=== PATIENT | male | born 2000 | race Caucasian/White ===

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

== ENCOUNTER 2021-01-08 12:22 | Emergency (ER) | payer BC, OTHER ==
[2021-01-08 12:39] VITALS: BP 00/00; TEMP 98.3; BMI 19.9
== END 2021-01-08 14:59 | disposition home or self-care (01) ==
LOC: JER 12:22 → JERFT 12:22
DX: S41.112A Laceration without foreign body of left upper arm, initial encounter (principal); S41.111A Laceration without foreign body of right upper arm, initial encounter
CPT/HCPCS: 99283-25

== ENCOUNTER 2021-03-31 19:46 | Emergency (ER) | payer BC, OTHER ==
[2021-03-31 20:26] VITALS: BMI 23.7
[2021-03-31] MEDS ORDERED: SODIUM CHLORIDE 2,381 ML IV ONE (20:39)
[2021-03-31] MEDS ORDERED: ACETAMINOPHEN 650 MG SUPP.RECT PR ONE (20:45)
[2021-03-31] MEDS ORDERED: ACETAMINOPHEN 1000 MG/100 ML VIAL (NON FORMULARY) IVPB ONE (20:49)
[2021-03-31] MEDS ORDERED: ACETAMINOPHEN INJECTION 100 ML IVPB ONE (20:50)
[2021-03-31] MEDS ORDERED: LORazepam 2 MG/ML SDV VIAL IVPUSH ONE (20:53)
[2021-03-31] MEDS ORDERED: HALOPERIDOL LACTATE 5 MG/ML IM ONE (20:53)
[2021-03-31] MEDS ORDERED: LORazepam 2 MG/ML SDV VIAL ONE (20:53)
[2021-03-31] MEDS ORDERED: HALOPERIDOL LACTATE 5 MG/ML ONE (20:53)
[2021-03-31] MEDS ORDERED: SODIUM CHLORIDE 0.9% 500 ML INFUS.BAG IV ONE (21:00)
[2021-03-31] MEDS ORDERED: AZITHROMYCIN IVPB 500 MG in DEXTROSE 5%-WATER - 250 ML IVPB ONE (21:27)
[2021-03-31] MEDS ORDERED: AZITHROMYCIN IVPB 500 MG/250 ML BAG IVPB ONE (22:36)
[2021-03-31 22:55] LABS: BASO % 0.1 % (0-2.0); HEMATOCRIT 35.6 % (35.4-49); HEMOGLOBIN 12.1 GM/dL (11.7-16.9); LYMPH % 9.2 % (8-40); MCH 28.1 pg (25.7-33.7); MCHC 33.9 g/dl (32.0-35.9); MEAN PLT VOLUME 7.9 fl (7.5-11.1); MONO % 11.5 % (3.8-10.2); NEUT % 79.2 % (42.8-82.8); PLATELET COUNT 148 10^3/uL (134-434); RBC 4.29 M/mm3 (4.00-5.60); RDW 13.2 % (11.9-15.9); WHITE BLOOD COUNT 8.3 K/mm3 (4.0-10.0)
[2021-03-31 23:00] LABS: ALBUMIN 2.7 g/dl (3.4-5.0); BLOOD UREA NITROGEN 11.6 mg/dL (7-18)
[2021-03-31 23:03] LABS: CREATININE 0.6 mg/dL (0.55-1.3)
[2021-03-31 23:04] LABS: BILIRUBIN,TOTAL 0.2 mg/dL (0.2-1); TOT PROT 6.9 g/dl (6.4-8.2)
[2021-03-31 23:13] VITALS: BP 110/43; PULSE 118; TEMP 101
[2021-03-31] MEDS ORDERED: IBUPROFEN 600 MG TABLET (FP) PO ONE ×2 (23:21→23:38)
[2021-03-31] MEDS ORDERED: IBUPROFEN 800 MG/8 ML IJ IVPB ONE ×2 (23:25→23:38)
== END 2021-04-01 01:06 | disposition home or self-care (01) ==
LOC: JER 19:46
PROC: 3E023NZ Introduction of Analgesics, Hypnotics, Sedatives into Muscle, Percutaneous Approach (ICD-10-PCS; principal; 2021-03-31)
PROC: 3E033NZ Introduction of Analgesics, Hypnotics, Sedatives into Peripheral Vein, Percutaneous Approach (ICD-10-PCS; 2021-03-31)
PROC: 3E033GC Introduction of Other Therapeutic Substance into Peripheral Vein, Percutaneous Approach (ICD-10-PCS; 2021-03-31)
PROC: 3E03329 Introduction of Other Anti-infective into Peripheral Vein, Percutaneous Approach (ICD-10-PCS; 2021-03-31)
PROC: 3E033GC Introduction of Other Therapeutic Substance into Peripheral Vein, Percutaneous Approach (ICD-10-PCS; 2021-03-31)
DX: J18.9 Pneumonia, unspecified organism (principal)
CPT/HCPCS: 36415; 71045-TC-FY; 80053; 85025; 87040; 87804; 99285-25; C9803; J0131; U0003; U0005

== ENCOUNTER 2021-06-05 23:36 | Emergency (ER) | payer BC, OTHER ==
[2021-06-05 23:50] VITALS: BMI 22.8
[2021-06-06] MEDS ORDERED: HALOPERIDOL LACTATE 5 MG/ML ONE (00:39)
[2021-06-06] MEDS ORDERED: LORazepam 2 MG/ML SDV VIAL ONE (00:40)
[2021-06-06] MEDS ORDERED: HALOPERIDOL LACTATE 5 MG/ML IM ONE (00:50)
[2021-06-06] MEDS ORDERED: LORazepam 2 MG/ML SDV VIAL IM ONE (00:50)
[2021-06-06] MEDS ORDERED: ACETAMINOPHEN 650 MG SUPP.RECT PR ONE (01:34)
[2021-06-06] MEDS ORDERED: ACETAMINOPHEN 650 MG SUPP.RECT ONE (01:58)
[2021-06-06] MEDS ORDERED: DIPHENHYDRAMINE HCL 25 MG/10 ML CUP PO ONE (02:40)
[2021-06-06] MEDS ORDERED: diphenhydrAMINE HCL 25 MG CAPSULE (FP) PO ONE (02:45)
[2021-06-06] MEDS ORDERED: diphenhydrAMINE HCL 12.5 MG/5 ML UNIT-DOSE CUPS ONE (02:50)
[2021-06-06 05:51] VITALS: BP 110/76; PULSE 95; TEMP 98.6
== END 2021-06-06 05:50 | disposition home or self-care (01) ==
LOC: JER 23:36
PROC: 3E023GC Introduction of Other Therapeutic Substance into Muscle, Percutaneous Approach (ICD-10-PCS; principal; 2021-06-05)
DX: R06.89 Other abnormalities of breathing (principal)
CPT/HCPCS: 71045-TC-FY; 74018-TC-FY; 99284-25

== ENCOUNTER 2021-11-04 05:37 | Emergency (ER) | payer BC, OTHER ==
[2021-11-04 06:38] VITALS: BMI 20.3
[2021-11-04] MEDS ORDERED: LORazepam 2 MG/ML SDV VIAL IM ONE (06:40)
[2021-11-04 07:12] LABS: BASO % 0.1 % (0-2.0); HEMATOCRIT 43.1 % (35.4-49); HEMOGLOBIN 14.6 GM/dL (11.7-16.9); LYMPH % 7.9 % (8-40); MCH 28.2 pg (25.7-33.7); MCHC 33.8 g/dl (32.0-35.9); MEAN CELL VOLUME 83.3 fl (80-96); MEAN PLT VOLUME 7.5 fl (7.5-11.1); MONO % 8.6 % (3.8-10.2); NEUT % 83.4 % (42.8-82.8); PLATELET COUNT 275 10^3/uL (134-434); RBC 5.17 M/mm3 (4.00-5.60); RDW 12.3 % (11.9-15.9); WHITE BLOOD COUNT 8.7 K/mm3 (4.0-10.0)
[2021-11-04 07:30] LABS: CALCIUM 9.5 mg/dL (8.5-10.1)
[2021-11-04 07:31] LABS: ALBUMIN 3.3 g/dl (3.4-5.0); BLOOD UREA NITROGEN 12.4 mg/dL (7-18); MAGNESIUM 2.3 mg/dL (1.8-2.4)
[2021-11-04 07:33] LABS: CREATININE 0.6 mg/dL (0.55-1.3)
[2021-11-04 07:35] LABS: BILIRUBIN,TOTAL 0.5 mg/dL (0.2-1); TOT PROT 8.1 g/dl (6.4-8.2)
[2021-11-04 08:25] LABS: URINE APPEARANCE CLEAR; URINE BILIRUBIN NEGATIVE (NEGATIVE); URINE COLOR YELLOW; URINE GLUCOSE (UA) NEGATIVE (NEGATIVE); URINE KETONE NEGATIVE (NEGATIVE); URINE LEUK ESTERASE NEGATIVE (NEGATIVE); URINE NITRITE NEGATIVE (NEGATIVE); URINE PROTEIN NEGATIVE (NEGATIVE)
[2021-11-04 09:06] VITALS: BP 156/90; PULSE 88
== END 2021-11-04 11:30 | disposition home or self-care (01) ==
LOC: JER 05:37
PROC: 3E0233Z Introduction of Anti-inflammatory into Muscle, Percutaneous Approach (ICD-10-PCS; principal; 2021-11-04)
PROC: 3E023NZ Introduction of Analgesics, Hypnotics, Sedatives into Muscle, Percutaneous Approach (ICD-10-PCS; 2021-11-04)
DX: R10.9 Unspecified abdominal pain (principal)
CPT/HCPCS: 36415; 74019-TC-FY; 80053; 80156; 80164; 81003; 83605; 83690; 83735; 85025; 87086; 99284-25

== ENCOUNTER 2023-04-12 09:23 | Emergency (ER) | payer BC, OTHER ==
[2023-04-12 10:12] VITALS: BP 133/74; PULSE 92; RESP 18; TEMP 98.1
[2023-04-12 11:44] LABS: BASO % 0.3 % (0-2.0); HEMATOCRIT 42.7 % (35.4-49); HEMOGLOBIN 14.4 GM/dL (11.7-16.9); MCH 27.2 pg (25.7-33.7); MCHC 33.7 g/dl (32.0-35.9); MEAN CELL VOLUME 80.8 fl (80-96); MEAN PLT VOLUME 7.4 fl (7.5-11.1); MONO % 9.4 % (3.8-10.2); NEUT % 52.3 % (42.8-82.8); PLATELET COUNT 187 10^3/uL (134-434); RBC 5.28 M/mm3 (4.00-5.60); RDW 14.5 % (11.9-15.9); WHITE BLOOD COUNT 4.8 K/mm3 (4.0-10.0)
[2023-04-12 12:16] LABS: POTASSIUM 3.9 mmol/L (3.5-5.1)
[2023-04-12 12:17] LABS: CALCIUM 8.7 mg/dL (8.5-10.1)
[2023-04-12 12:18] LABS: ALBUMIN 3.3 g/dl (3.4-5.0); BLOOD UREA NITROGEN 14.4 mg/dL (7-18)
[2023-04-12 12:21] LABS: CREATININE 0.7 mg/dL (0.55-1.3)
[2023-04-12 12:22] LABS: TOT PROT 7.5 g/dl (6.4-8.2)
[2023-04-12 12:23] LABS: BILIRUBIN,TOTAL 0.3 mg/dL (0.2-1)
== END 2023-04-12 14:55 | disposition home or self-care (01) ==
LOC: JER 09:23
PROC: 0HQ1XZZ Repair Face Skin, External Approach (ICD-10-PCS; principal; 2023-04-12)
PROC: 3E023GC Introduction of Other Therapeutic Substance into Muscle, Percutaneous Approach (ICD-10-PCS; 2023-04-12)
PROC: 3E023GC Introduction of Other Therapeutic Substance into Muscle, Percutaneous Approach (ICD-10-PCS; 2023-04-12)
DX: S01.21XA Laceration without foreign body of nose, initial encounter (principal); W18.39XA Other fall on same level, initial encounter
CPT/HCPCS: 36415; 80053; 80156; 80164; 85025; 99284-25

== ENCOUNTER 2024-03-02 00:33 | Emergency (ER) | payer BC, OTHER ==
[2024-03-02 00:52] VITALS: BP 130/80; PULSE 93; RESP 18; TEMP 97; BMI 25.7
== END 2024-03-02 06:02 | disposition home or self-care (01) ==
LOC: JER 00:33
DX: G40.909 Epilepsy, unspecified, not intractable, without status epilepticus (principal); R41.82 Altered mental status, unspecified
CPT/HCPCS: 99283-25